=== PATIENT | female | born 1960 | race Caucasian/White ===

== ENCOUNTER 2017-07-01 15:48 | Observation (INO) | payer OTHER, MEDICAID ==
--- NOTE | 2017-07-01 16:11 | CPEKG ---
Heart Rate: 78 RR Interval: 769 P-R Interval: 140 QRSD Interval: 104 QT Interval: 424 QTC Interval: 484 P Eleele: 27 QRS Eleele: -49 T Wave Eleele: 52 EKG Severity - ABNORMAL ECG - EKG Impression: SINUS RHYTHM EKG Impression: LEFT ANTERIOR FASCICULAR BLOCK EKG Impression: LVH WITH SECONDARY REPOLARIZATION ABNORMALITY Electronically Signed By: Alem Davis 01-Jul-2017 20:06:38
--- NOTE | 2017-07-01 16:16 | EDPHY ---
H & P Time Seen by Provider: 07/01/17 15:50 HPI/ROS: CHIEF COMPLAINT: Syncope HISTORY OF PRESENT ILLNESS: 57-year-old female presents to the emergency department by ambulance after having a syncopal episode. The patient has a history of several syncopal episodes in the last month. She states today she was at [facility] visiting her mom and apparently and a good found the patient lying on the ground after having a syncopal episode. It was not clear whether seizure activity was witnessed. She denies pain in her chest or difficulty breathing. Denies headache. Denies reported trauma. Denies paresthesias in upper or lower extremities. She has a history of chronic pain in the left side of her face into her shoulder. She also has pain in her upper back which causes pain in her left foot. These are not new symptoms for her. She has seen her primary care provider for this. She does not think that she has seen a management recruiter. REVIEW OF SYSTEMS: Constitutional: No fever, no chills. Eyes: No double or blurry vision. ENT: No sore throat. Respiratory: No cough, no shortness of breath. Cardiac: No chest pain. Gastrointestinal: No abdominal pain, vomiting or diarrhea. Genitourinary: No dysuria. Musculoskeletal: No neck or back pain. Skin: No rashes. Neurological: No headache. Past Medical/Surgical History: Autonomic dysfunction, hypothroid, diabetes type 2, hyperlipidemia, HTN, gastroparesis, migraines, chronic pain syndrome, syncope, orthostatic hypotension Social History: Single and lives in [place] Physical Exam: General Appearance: Alert, no distress. Vital signs are stable. Patient has a tender palpable lump to the left posterior aspect of her head. No scalp abrasion or puncture wound noted. Eyes: Pupils equal and round. Extraocular motions are all intact. ENT: Mouth: Mucous membranes moist. Respiratory: No wheezing, rhonchi, or rales, lungs are clear to auscultation. Cardiovascular: Regular rate and rhythm. Gastrointestinal: Abdomen is soft and nontender, no masses, no rebound or guarding, bowel sounds normal. Neurological: Alert and oriented x 3, cranial nerves II through XII grossly intact Skin: Warm and dry, no rashes. Musculoskeletal: Nontender to palpate along the cervical, thoracic or lumbar spine. Neck is supple. Extremities: Full range of motion and no peripheral edema. Psychiatric: Patient is oriented X 3, there is no agitation. Constitutional: Initial Vital Signs Temperature (C) 36.3 C 07/01/17 16:08 Heart Rate 88 07/01/17 16:08 Respiratory Rate 16 07/01/17 16:08 Blood Pressure 149/99 H 07/01/17 16:08 O2 Sat (%) 94 07/01/17 16:08 O2 Delivery Mode Room Air Allergies/Adverse Reactions: duloxetine HCl [From Cymbalta] Allergy (Verified 06/16/10 18:48) ertapenem sodium [From Invanz] Allergy (Verified 06/16/10 18:48) pregabalin [From Lyrica] Allergy (Verified 06/16/10 18:48) sulfamethoxazole [From Bactrim] Allergy (Verified 06/16/10 18:48) trimethoprim [From Bactrim] Allergy (Verified 06/16/10 18:48) Home Medications: Medication Instructions Recorded Alendronate Na 06/16/10 Aspirin 81mg 06/16/10 Benefiber,Stool Softener 06/16/10 Fish Oil,Vits,Ca,Coq10 06/16/10 GLIMEPIRIDE 06/16/10 Gemfibrozil 06/16/10 Klor-Con 06/16/10 LEVOTHYROXINE 06/16/10 LORazepam [Ativan] 0.5 - 1 mg PO Q6 PRN #12 tab 06/16/10 Ondansetron Odt [Zofran Odt] 4 mg SL Q4PRN PRN #4 tab 06/16/10 Atorvastatin Calcium 07/01/17 INSULIN REGULAR, HUMAN 07/01/17 Insulin Aspart Novolog 70/30 07/01/17 Metformin HCl 07/01/17 Metoprolol ER-Hctz 25-12.5 mg 07/01/17 Medical Decision Making - Diagnostics Imaging Results: Imaging Impressions Chest X-Ray 07/01/17 16:28 Impression: 1. Suspect airways disease. 2. Borderline cardiac enlargement. Imaging: Discussed imaging studies w/ hide selector Radiologist ED Course/Re-evaluation: 57-year-old female presents to the emergency department with a syncopal episode. The patient fell and hit her head. CT imaging of the brain was negative. Laboratory studies are unremarkable. Troponin is negative. EKG reveals normal sinus rhythm with LVH. While the patient was in the emergency department she had a syncopal episode. She was kept on a block piler. No cardiac arrhythmias noted. No seizure activity witnessed. She was not postictal. I spoke with [facility], and spoke with Daniel who agreed with admission and recommended admitting the patient to the hospital here at [facility]. Case was discussed with Dr. Alem Davis, secondary supervising physician, Differential Diagnosis: Head injury including but not limited to concussion, skull fracture, intraparenchymal contusion, subarachnoid, subdural and epidural hematoma. Syncope including but not limited to vasovagal syncope, arrhythmia, dehydration , and blood loss. - Data Points Laboratory Results: Laboratory Results 07/01/17 15:55 07/01/17 15:55 07/01/17 07/01/17 15:55 15:55 WBC 6.53 10^3/uL 10^3/uL (3.80-9.50) RBC 5.18 10^6/uL 10^6/uL (4.18-5.33) Hgb 15.7 g/dL g/dL (12.6-16.3) Hct 45.6 % % (38.0-47.0) MCV 88.0 fL fL (81.5-99.8) MCH 30.3 pg pg (27.9-34.1) MCHC 34.4 g/dL g/dL (32.4-36.7) RDW 12.3 % % (11.5-15.2) Plt Count 199 10^3/uL 10^3/uL (150-400) MPV 11.5 fL fL (8.7-11.7) Neut % (Auto) 45.0 % % (39.3-74.2) Lymph % (Auto) 44.4 % % (15.0-45.0) Crisp % (Auto) 7.4 % % (4.5-13.0) Eos % (Auto) 2.0 % % (0.6-7.6) Baso % (Auto) 0.6 % % (0.3-1.7) Nucleat RBC Rel Count 0.0 % % (0.0-0.2) Absolute Neuts (auto) 2.94 10^3/uL 10^3/uL (1.70-6.50) Absolute Lymphs (auto) 2.90 10^3/uL 10^3/uL (1.00-3.00) Absolute Monos (auto) 0.48 10^3/uL 10^3/uL (0.30-0.80) Absolute Eos (auto) 0.13 10^3/uL 10^3/uL (0.03-0.40) Absolute Basos (auto) 0.04 10^3/uL 10^3/uL (0.02-0.10) Absolute Nucleated RBC 0.00 10^3/uL 10^3/uL (0-0.01) Immature Gran % 0.6 % % (0.0-1.1) Immature Gran # 0.04 10^3/uL 10^3/uL (0.00-0.10) Sodium 140 mEq/L mEq/L (134-144) Potassium 4.0 mEq/L mEq/L (3.5-5.2) Chloride 102 mEq/L mEq/L (97-110) Carbon Dioxide 25 mEq/l mEq/l (22-31) Anion Gap 13 mEq/L mEq/L (8-16) BUN 24 mg/dL H mg/dL (7-23) Creatinine 0.7 mg/dL mg/dL (0.6-1.0) Estimated GFR > 60 Glucose 262 mg/dL H mg/dL (70-100) Calcium 9.5 mg/dL mg/dL (8.5-10.4) Troponin I < 0.012 ng/mL ng/mL (0.000-0.034) Departure - Departure Disposition: [facility] Inpatient Acute Clinical Impression: Syncope Qualifiers: Syncope type: unspecified Qualified Code(s): R55 - Syncope and collapse Condition: Good Referrals: Patient,NotPresent [Unknown] - As per Instructions
[2017-07-01 16:33] LABS: % IMMATURE GRANULYOCYTES 0.6 % (0.0-1.1); ABSOLUTE IMMATURE GRANULOCYTES 0.04 10^3/uL (0.00-0.10); ADD DIFF? NO; ADD MORPH? NO; ADD SCAN? NO; ATYPICAL LYMPHOCYTE FLAG 10 (0-99); FRAGMENT RBC FLAG 0 (0-99); HEMATOCRIT 45.6 % (38.0-47.0); HEMOGLOBIN 15.7 g/dL (12.6-16.3); LEFT SHIFT FLG 0 (0-99); LIPEMIA HEMOLYSIS FLAG 90 (0-99); MEAN CELL HEMOGLOBIN 30.3 pg (27.9-34.1); MEAN CELL HEMOGLOBIN CONCENTR. 34.4 g/dL (32.4-36.7); MEAN PLATELET VOLUME 11.5 fL (8.7-11.7); PLATELET CLUMPS FLAG 20 (0-99); PLATELET COUNT 199 10^3/uL (150-400); RED BLOOD CELL COUNT 5.18 10^6/uL (4.18-5.33); RED CELL DISTRIBUTION WIDTH 12.3 % (11.5-15.2)
[2017-07-01 16:41] LABS: ANION GAP 13 mEq/L (8-16); CALCIUM 9.5 mg/dL (8.5-10.4); CARBON DIOXIDE 25 mEq/l (22-31); CHLORIDE 102 mEq/L (97-110); CREATININE 0.7 mg/dL (0.6-1.0); GLOMERULAR FILTRATION RATE > 60; GLUCOSE 262 mg/dL (70-100); SODIUM 140 mEq/L (134-144)
[2017-07-01 16:56] LABS: TROPONIN I < 0.012 ng/mL (0.000-0.034)
[2017-07-01] MEDS ORDERED: ACETAMINOPHEN 500 MG TAB PO ONE (18:38)
[2017-07-01] MEDS ORDERED: ONDANSETRON 4 MG/2 ML VIAL IVP PRN (19:18)
[2017-07-01] MEDS ORDERED: ONDANSETRON DISINTEGRATING 4 MG TAB PO PRN (19:18)
[2017-07-01] MEDS ORDERED: ACETAMINOPHEN 325 MG TAB PO PRN (19:18)
[2017-07-01] MEDS ORDERED: D50W 25 GM/50 ML SYR IVP PRN (20:06)
--- NOTE | 2017-07-01 20:12 | PDGENHP ---
History and Physical - Chief Complaint syncope - History of Present Illness 57 yo female with multiple medical problems including DM, htn, hld, and chronic pain presents to ED after a syncopal event. She was visiting her mother at a SNF and remembers getting up from a chair. The next thing she remembers is waking up on the ground. She had no pre-syncopal symptoms such as dizziness / lightheadedness, chest pain, SOB or palpitations. She has no infectious symptoms such as fever, headache, abdominal pain, N/V or urinary symptoms. She has a long history of syncope dating back several years ago and most recently has had at least 6 episodes of syncope this month. Workup by her [place] physicians included a cardiac event monitor, which did not reveal an arrhythmia. She was diagnosed with neurogenic syncope, thought to be provoked by pain. She does note increased back pain today. Based on our pharmacist's discussion with her pharmacy, she is intermittently compliant with her medications, but she notes she has been consistently taking Metoprolol and Lisinopril for hypertension. In the ED, a head CT was negative for acute bleed or abnormality. Her vital signs are stable. She is admitted to the hospital for further evaluation of her syncope. History Information - Allergies/Home Medication List Allergies/Adverse Reactions: duloxetine HCl [From Cymbalta] Allergy (Verified 06/16/10 18:48) ertapenem sodium [From Invanz] Allergy (Verified 06/16/10 18:48) mushroom Allergy (Verified 07/01/17 18:51) pregabalin [From Lyrica] Allergy (Verified 06/16/10 18:48) sulfamethoxazole [From Bactrim] Allergy (Verified 06/16/10 18:48) trimethoprim [From Bactrim] Allergy (Verified 06/16/10 18:48) rye Allergy (Uncoded 07/01/17 18:51) tunafish Allergy (Uncoded 07/01/17 18:51) Home Medications: Aspirin EC [Aspirin EC 81 mg (*)] 81 mg PO DAILY 07/01/17 [Last Taken Unknown] Atorvastatin Calcium [Lipitor 80 mg] 80 mg PO DAILY 07/01/17 [Last Taken Unknown ] Insulin Aspart [Novolog Flexpen] 0 - 20 unit SQ TIDMEAL PRN 07/01/17 [Last Taken Unknown] Insulin NPH Human Isophane [Novolin N] 40 unit SQ BID 07/01/17 [Last Taken Unknown] Levothyroxine [Synthroid 112 mcg (*)] 112 mcg PO DAILY06 07/01/17 [Last Taken Unknown] Lisinopril [Zestril 5 mg (*)] 2.5 mg PO DAILY 07/01/17 [Last Taken Unknown] Metoprolol Tartrate [Lopressor 25 mg (*)] 25 mg PO BID 07/01/17 [Last Taken Unknown] Venlafaxine HCl [Venlafaxine HCl ER] 75 mg PO DAILY 07/01/17 [Last Taken Unknown ] metFORMIN HCL [Metformin HCl ER] 1,000 mg PO BID 07/01/17 [Last Taken Unknown] I have personally reviewed and updated: family history, medical history, social history, surgical history - Past Medical History diabetes type 2, hypertension, hyperlipidemia Additional medical history: chronic pain, hypothyroid, h/o autonomic dysfunction , gastroparesis, migraine headaches - Surgical History Reports: no pertinent surgical hx - Family History Additional family history: parent with cardiomyopathy - Social History Smoking Status: Never smoked Alcohol Use: None Drug Use: None Additional social history: Single, lives independently in [place] Review of Systems Review of Systems: ROS: 10pt was reviewed & negative except for what was stated in HPI & below Physical Exam Physical Exam: Temp Pulse Resp BP Pulse Ox 36.9 C 76 13 151/93 H 92 07/01/17 19:53 07/01/17 20:02 07/01/17 20:02 07/01/17 20:02 07/01/17 20:02 Constitutional: no apparent distress, obese Eyes: PERRL Ears, Nose, Mouth, Throat: moist mucous membranes Cardiovascular: regular rate and rhythym, no murmur, rub, or gallop Respiratory: no respiratory distress, clear to auscultation Gastrointestinal: normoactive bowel sounds, soft, non-tender abdomen Skin: warm Musculoskeletal: full muscle strength Neurologic: AAOx3, sensation intact bilaterally Psychiatric: interacting appropriately Lab Data & Imaging Review 07/01/17 15:55 07/01/17 15:55 WBC 6.53 10^3/uL (3.80-9.50) 07/01/17 15:55 RBC 5.18 10^6/uL (4.18-5.33) 07/01/17 15:55 Hgb 15.7 g/dL (12.6-16.3) 07/01/17 15:55 Hct 45.6 % (38.0-47.0) 07/01/17 15:55 MCV 88.0 fL (81.5-99.8) 07/01/17 15:55 MCH 30.3 pg (27.9-34.1) 07/01/17 15:55 MCHC 34.4 g/dL (32.4-36.7) 07/01/17 15:55 RDW 12.3 % (11.5-15.2) 07/01/17 15:55 Plt Count 199 10^3/uL (150-400) 07/01/17 15:55 MPV 11.5 fL (8.7-11.7) 07/01/17 15:55 Neut % (Auto) 45.0 % (39.3-74.2) 07/01/17 15:55 Lymph % (Auto) 44.4 % (15.0-45.0) 07/01/17 15:55 Jennings % (Auto) 7.4 % (4.5-13.0) 07/01/17 15:55 Eos % (Auto) 2.0 % (0.6-7.6) 07/01/17 15:55 Baso % (Auto) 0.6 % (0.3-1.7) 07/01/17 15:55 Nucleat RBC Rel Count 0.0 % (0.0-0.2) 07/01/17 15:55 Absolute Neuts (auto) 2.94 10^3/uL (1.70-6.50) 07/01/17 15:55 Absolute Lymphs (auto) 2.90 10^3/uL (1.00-3.00) 07/01/17 15:55 Absolute Monos (auto) 0.48 10^3/uL (0.30-0.80) 07/01/17 15:55 Absolute Eos (auto) 0.13 10^3/uL (0.03-0.40) 07/01/17 15:55 Absolute Basos (auto) 0.04 10^3/uL (0.02-0.10) 07/01/17 15:55 Absolute Nucleated RBC 0.00 10^3/uL (0-0.01) 07/01/17 15:55 Immature Gran % 0.6 % (0.0-1.1) 07/01/17 15:55 Immature Gran # 0.04 10^3/uL (0.00-0.10) 07/01/17 15:55 Sodium 140 mEq/L (134-144) 07/01/17 15:55 Potassium 4.0 mEq/L (3.5-5.2) 07/01/17 15:55 Chloride 102 mEq/L (97-110) 07/01/17 15:55 Carbon Dioxide 25 mEq/l (22-31) 07/01/17 15:55 Anion Gap 13 mEq/L (8-16) 07/01/17 15:55 BUN 24 mg/dL (7-23) H 07/01/17 15:55 Creatinine 0.7 mg/dL (0.6-1.0) 07/01/17 15:55 Estimated GFR > 60 07/01/17 15:55 Glucose 262 mg/dL (70-100) H 07/01/17 15:55 Calcium 9.5 mg/dL (8.5-10.4) 07/01/17 15:55 Troponin I < 0.012 ng/mL (0.000-0.034) 07/01/17 15:55 Visualized and Interpreted Chest x-ray results: Yes Chest X-Ray results: no infiltrate Visualized and Interpreted EKG results: Yes EKG Interpretation: Positive for: normal sinsus rhythm Assessment & Plan Assessment: Syncope - She has a long history of syncope, which has been diagnosed as neurogenic in nature, thought to be provoked by pain. However, she did not get her typical pre-syncopal symptoms this time so cardiac etiology must be considered. Also consider orthostasis and autonomic neuropathy in setting of diabetes -admit to PCU for telemetry monitoring -echo to evaluate for structural heart disease. If she has right heart strain, would consider CTA to r/o PE -check orthostatics Type 2 DM - bg on arrival is 262. Will check a1c to assess overall control. -cont home NPH and SSI Hypertension - BP's labile since arrival (119/75, one hour later 178/110). -cont home regimen with Metoprolol and Lisinopril -check orthostatics as above. If orthostatic, may need to hold or reduce doses Hyperlipidemia - cont statin Chronic pain - managed with Effexor Hypothyroidism - cont synthroid Full code Dispo - obs
[2017-07-01] MEDS: METOPROLOL TARTRATE 25 MG TAB PO SCH (22:27)
[2017-07-01] MEDS: INSULIN NPH HUMAN 100 UNITS/ML SYRINGE SC SCH (22:30)
[2017-07-02] MEDS ORDERED: LEVOTHYROXINE 112 MCG TAB PO SCH (06:00)
[2017-07-02] MEDS ORDERED: ENOXAPARIN 40 MG/0.4 ML SYR SC SCH (09:00)
[2017-07-02] MEDS ORDERED: VENLAFAXINE XR 75 MG CAP PO SCH (09:00)
[2017-07-02] MEDS ORDERED: LISINOPRIL 2.5 MG TAB PO SCH (09:00)
[2017-07-02] MEDS ORDERED: ATORVASTATIN CALCIUM 40 MG TAB PO SCH (09:00)
[2017-07-02] MEDS ORDERED: ASPIRIN EC 81 MG TAB PO SCH (09:00)
[2017-07-02] MEDS: METOPROLOL TARTRATE 25 MG TAB PO SCH (09:01)
[2017-07-02] MEDS: INSULIN LISPRO 100 UNIT/ML SC SCH ×2 (09:06→13:37)
[2017-07-02] MEDS: INSULIN NPH HUMAN 100 UNITS/ML SYRINGE SC SCH (09:23)
--- NOTE | 2017-07-02 10:24 | ASMTCMCOM ---
CM Note CM Note Notes: 07/01/2017 Case Management Note Met w/patient. Pt signed APODACA. Discussed discharge needs, no case management d/c needs identified. Pt lives in [facility] Independent living at [facility] Pt currently drives, able to grocery shop and get to appointments. She uses a walker at home. Pt feels she is well resourced for medical care. Pt reports strong family support: Brother lives a mile away, a niece is an RN, her Mom lives at [facility]. PT and OT evals are ordered. Case management available if needs arise. Case Management d/c poc: Home independent resuming community supports in place when medically stable. Date Signed: 07/02/2017 10:23 AM Electronically Signed By:Xiomara Nunes RN
[2017-07-02 11:26] LABS: ANION GAP 14 mEq/L (8-16); CARBON DIOXIDE 23 mEq/l (22-31); CHLORIDE 105 mEq/L (97-110); CREATININE 0.6 mg/dL (0.6-1.0); GLOMERULAR FILTRATION RATE > 60; GLUCOSE 197 mg/dL (70-100); POTASSIUM 3.9 mEq/L (3.5-5.2); SODIUM 142 mEq/L (134-144)
--- NOTE | 2017-07-02 11:46 | ECHO ---
[email or web address] [address] [address] Main: [phone] Fax: Transthoracic Echocardiogram Name: JAMI DSOUZA MR#: [id number] Study Date: 07/02/2017 Study Time: 09:53 AM Date of : 1960 Age: 57 year(s) Height: 162.6 cm (64 in.) Weight: 108.41 kg (239 lb.) BSA: 2.11 m2 Gender: Female Examination: Echo Indication: Image Quality: Contrast: Requested by: Melissa Sutton BP: / Heart Rate: Rhythm: Indication: Procedure Staff Ordering Physician: MARCO A Minister Assistant: Ervin Hanley Reading Physician: Brittney De Paz Conclusions: Normal size left ventricle. Normal global systolic LV function (EF 61 %). Ectopy was noted during the exam. No significant valvular disease There is no previous echocardiogram for comparison. Measurements: Chambers Valvular Assessment AV/MV Valvular Assessment TV/PV Normal Normal Normal Name Value Range Name Value Range Name Value Range Ao Gemma (MM): 2.9 cm (2.2 cm-3.7 AV Vmax: 1.29 m/s (1 m/s-1.7 cm) m/s) IVSd (2D): 0.9 cm (0.6 cm-1.1 AV maxP mmHg ( - ) cm) LVOT Vmax: 0.66 m/s (0.7 m/s-1.1 LVDd (2D): 4.1 cm (3.9 cm-5.3 m/s) cm) MV E Vmax: 0.72 cm/s ( - ) LVDs (2D): 2.8 cm (2.1 cm-4 MV A Vmax: 0.79 cm/s ( - ) cm) MV E/A: 0.91 ( - ) LVPWd (2D): 1.2 cm ( - ) LVEF (2D): 61 (>=54 %) Continued Measurements: Chambers Valvular Assessment AV/MV Name Value Name Value LA Area: 18.9 cm2 MV E/E' Septal: 14.20 LA Volume: 54 ml MV E/E' Lateral: 13.70 LA Volume Index: 25.6 ml/m2 Patient: JAMI DSOUZA Study Date: 07/02/2017 Page 1 of 2 09:53 AM Findings: Left Ventricle: Normal size left ventricle. Normal global systolic LV function (EF 61 %). Diastolic dysfunction is present. . Ectopy was noted during the exam. Right Ventricle: Normal size right ventricle. Left Atrium: The left atrium is normal in size. Right Atrium: The right atrium is normal in size. Mitral Valve: The mitral valve is normal in appearance and function. Aortic Valve: Mild aortic cusp calcification is noted. No aortic valve stenosis is present. Tricuspid Valve: The tricuspid valve is normal in appearance and function. Pulmonic Valve: The pulmonic valve is normal in appearance and function. Great Vessels: The aorta is normal. Pericardium: No pericardial effusion. There is pericardial fat. (No Signature Object) Patient: JAMI DSOUZA Study Date: 07/02/2017 Page 2 of 2 09:53 AM [id number]
[2017-07-02 12:28] VITALS: PULSE 64; RESP 12; O2SAT 96
[2017-07-02] MEDS ORDERED: TOPIRAMATE 25 MG TAB PO SCH (12:45)
[2017-07-02 13:19] VITALS: BP 129/82; TEMP 97.6
--- NOTE | 2017-07-02 15:55 | ASDISCHSUM ---
Discharge Information Plan Status:Home with No Needs Medically Cleared to Leave: Discharge Date:07/02/2017 03:12 PM CM D/C Disposition:Home, Routine, Self-Care ADT D/C Disposition:Home, Routine, Self-Care Projected Discharge Date:07/02/2017 03:12 PM Transportation at D/C:Family Discharge Delay Reason: Follow-Up Date:07/02/2017 03:12 PM Discharge Slot: Final Diagnosis: Placement Information Patient Contact Information Contact Name:OLYATRELLEDY Relationship:Efrain Address:[address] [address] Work Phone: City:[facility] Phone: State/Zip Code:[place] [address] Email: Financial Information Financial Class: Primary Plan Desc:MEDICARE OUTPATIENT Primary Plan Number:[id number] Secondary Plan Desc:MEDICA[place] Secondary Plan Number:[id number] Assessment Information [facility] CM Progress Note CM Note CM Note Notes: 07/01/2017 Case Management Note Met w/patient. Pt signed APODACA. Discussed discharge needs, no case management d/c needs identified. Pt lives in [facility] Independent living at [facility] Pt currently drives, able to grocery shop and get to appointments. She uses a walker at home. Pt feels she is well resourced for medical care. Pt reports strong family support: Brother lives a mile away, a niece is an RN, her Mom lives at [facility]. PT and OT evals are ordered. Case management available if needs arise. Case Management d/c poc: Home independent resuming community supports in place when medically stable. Date Signed: 07/02/2017 10:23 AM Electronically Signed By:Xiomara Nunes RN Intervention Information
--- NOTE | 2017-07-02 16:49 | PDDCSUM ---
Discharge Summary Discharge Summary: DISCHARGE SUMMARY FOLLOW-UP ITEMS: Outpatient neurology follow-up DATE OF ADMISSION: 07/01/2017 DATE OF DISCHARGE: 07/02/2017 DISCHARGE DIAGNOSES: 1. Acute syncope 2. Suspected complex migraine 3. Suspected functional disorder CONSULTATIONS: None PROCEDURES / IMAGING: Head CT demonstrating no intracranial hemorrhage comma chest x-ray normal, Echo completely normal CHIEF COMPLAINT: Acute reported syncope SUBJECTIVE: Patient is feeling well at time of discharge, she has had 1 of her events witnessed by this provider during our encounter PHYSICAL EXAM ON DISCHARGE: Systolic blood pressure is 121-160, heart rate 70, afebrile overnight, satting well on room air, negative orthostatic vital signs, alert awake oriented x3, patient appears fatigued, occasionally closing her eyes during our exam, occasionally fluttering her eyelids, but she remains fully oriented, fully engaged in our encounter, is not confused, with cranial nerves 2-12 intact and tested with some subjective diplopia comma motor strength 5/5 bilateral upper and lower extremities, sensation intact bilaterally, facial symmetry, heart rhythm is regular with regular rate, lungs are clear to auscultation bilaterally LABS ON DISCHARGE: Hemoglobin A1c pending at time of discharge, creatinine 0.6, troponin negative, calcium 9.0, ddimer normal HOSPITAL COURSE BY PROBLEM: The patient presented with what was reported as syncopal episode while she was visiting her mother at local half-way facility. The patient then had what was described as a 2nd syncopal episode while she was being transported to [facility]. The patient reports that she has had approximately 6 of these episodes over the past several weeks without any known etiology. She has not injured herself during any of those events and she reports that she has not recently received outpatient evaluation for them. She has received outpatient evaluation for similar events approximately 4 years ago, when she had an unremarkable event monitor, an unremarkable EEG, and other tests of which she does not recall. She had at least 2 of these events while she was being monitored on the PCU, and both of these events did not demonstrate any significant attributable arrhythmias on telemetry (she had a normal sinus mechanism with occasional junctional escape beats, but no more than 2 seconds between sinus complexes), and the one which I witnessed, the patient was not experiencing an active seizure, she was fully oriented, and she did not actually syncopize. Overall, the event appeared to be a person experiencing fatigue and transient slow responsiveness, not not an actual seizure, not a stroke, not actual loss of consciousness, and not a cardiovascular event. She reports a history of narcolepsy, and the event I witnessed could certainly be related to disrupted sleep/wakefulness. After the episode, the patient did report a right-sided headache and she did have some subjective diplopia. I think the most likely etiology of her symptoms is either complex migraine or functional disorder. I recommended Topamax for chronic headache management outpatient reassessment with her primary care provider, to receive an outpatient neurology referral. It would be prudent to repeat her EEG in the outpatient setting and also perform a repeat cardiac event monitor to ensure that there is not any pathologic pause or junctional escape rhythm with her events. Her orthostatic vital signs are normal, she has normal laboratory values, and she is safe for discharge home with outpatient follow-up DISCHARGE MEDICATIONS: Please see official discharge medication reconciliation sheet in chart , Topamax 25 mg at bedtime, continue all other home medications. DISCHARGE INSTRUCTIONS: Please follow up with primary care provider this week, please receive Neurology outpatient referral, please do not operate a motor vehicle until advised that it is safe to do so.
[2017-07-03 06:20] LABS: HEMOGLOBIN A1C 11.6 % (4.0-6.0)
== END 2017-07-02 15:12 | disposition home or self-care (01) ==
LOC: EDUNIT# → F2W 20:15
PROVIDERS: ADMIT Hospitalist; ATTEND Internal Medicine
DX: R55 Syncope and collapse (principal); R51 Headache; E11.9 Type 2 diabetes mellitus without complications; E03.9 Hypothyroidism, unspecified; E78.5 Hyperlipidemia, unspecified; G89.4 Chronic pain syndrome; I95.1 Orthostatic hypotension; Z79.4 Long term (current) use of insulin; Z87.898 Personal history of other specified conditions
CPT/HCPCS: 70450; 71020; 93005; 93306; 97161; 97166; G0378; G8978; G8979; G8980; G8987; G8988; G8989; J1650; J1815